=== PATIENT | male | born 1960 | race Caucasian/White ===

== ENCOUNTER → 2016-12-27 | Outpatient (CLI) | payer BC ==
[~2016-12-27] MED LIST: DIAZ10TA PO; HYDR1TAB66 PO; ZLP10T PO
--- NOTE | 2016-12-27 17:48 | Diagnostic Imaging Report ---
INDICATION: Left foot pain. COMPARISON: None. FINDINGS: Three views of left foot demonstrate of no fracture or dislocation. Articular surfaces appear normal. No foreign body seen. IMPRESSION: No discernible fracture. Dictated by: Dictated on workstation # [id number]
== END ==
LOC: RAD 17:01
PROVIDERS: ATTEND Nurse Practitioner Family
DX: M79.672 Pain in left foot (principal)
CPT/HCPCS: 73630

== ENCOUNTER → 2023-02-13 | Outpatient (CLI) | payer BC | LOC: LAB 09:25 | PROVIDERS: ATTEND Specialist | DX: N40.1 Benign prostatic hyperplasia with lower urinary tract symptoms (principal); E29.1 Testicular hypofunction; Z80.42 Family history of malignant neoplasm of prostate | CPT/HCPCS: 36415; 84153; 84403 ==

== ENCOUNTER 2023-03-04 05:39 | Outpatient (CLI) | payer BC ==
[~2023-03-04] VITALS: Ht 168.1 cm; Wt 75.7 kg
[2023-03-05] MEDS ORDERED: DAPA5TAB PO (15:24)
[2023-03-05] MEDS ORDERED: ZOLP10TA PO (15:24)
[2023-03-05] MEDS ORDERED: DIAZ2TAB2 PO (15:24)
[2023-03-05] MEDS ORDERED: ROSU20TA73 PO (15:24)
[2023-03-05] MEDS ORDERED: CYCL10TA25 PO (15:24)
[2023-03-05] MEDS ORDERED: TADA5TAB4 PO (15:24)
[2023-03-05] MEDS ORDERED: EZET10TA49 PO (15:24)
[2023-03-05] MEDS ORDERED: MELO15TA39 PO (15:24)
[2023-03-05] MEDS ORDERED: METF750T45 PO (15:24)
[2023-03-05] MEDS ORDERED: LISI20TA26 PO (15:24)
== END 2023-03-05 15:29 | disposition home or self-care (01) ==
LOC: PREOP 05:39
PROVIDERS: ATTEND Surgery
DX: Z01.818 Encounter for other preprocedural examination (principal)